=== PATIENT | male | born 1960 | race Caucasian/White ===

== ENCOUNTER → 2024-02-04 | Outpatient (CLI) | payer OTHER ==
--- NOTE | 2024-02-04 13:23 | MR ---
EXAMINATION TYPE: MR Prostate wo/w con DATE OF EXAM: 02/04/2024 8:29 AM COMPARISON: None. CLINICAL INDICATION:Male, 63 years old with history of R97.20 ELEVATED PROSTATE SPECIFIC ANTIGEN [PSA ]; Elevated PSA TECHNIQUE: Multi-planar, multi-sequence imaging of the pelvis is performed prior to and following the uncomplicated administration of bolus intravenous gadolinium. CONTRAST: 10 Gadavist Interpretive Criteria: PI-RADS v2.1 SERUM PSA: 23.3 on January 2024 SURGICAL PATHOLOGY: No data available. FINDINGS: Prostatic dimensions: 6.4 x 6.5 x 4.8 cm. Ellipsoid Volume:104.55 (PSA density=0.22 ng/mL/mL) CENTRAL GLAND (Central and Transition Zones/CZ+TZ): * Medial anterior central gland just left of midline 8 x 8 x 8 mm low T2 high DWI low ADC signal les ion (PI-RADS 4) * Anterior lateral right of midline with low T2 high or heterogenous DWI/ADC signal measuring 13 x 1 0 mm (PI-RADS 4) Multiple bilateral, heterogenous appearing hypertrophic stromal nodules, without suspicious lesion. M edian lobe hypertrophy with protrusion into the base of the bladder. (PI-RADS 2) PERIPHERAL ZONE (PZ): Bilateral linear, indistinct wedgelike areas of low ADC, and low T2 signal, No evidence of masslike a bnormality, or localized perfusional hypervascularity, to further suggest a focus of clinically signi ficant prostate cancer. (PI-RADS 2) SEMINAL VESICLES (SV): Symmetric and unremarkable. PERIPROSTATIC TISSUES: Unremarkable. LYMPH NODES: No enlarged pelvic lymph node. REMAINING PELVIS: Bladder wall is within normal limits given distention. No abnormal free or organized intrapelvic fluid collection. No pathologic bowel dilation or mural thickening. Right fat containing inguinal hernia Left hydrocele. OSSEOUS STRUCTURES: No suspicious osseous abnormality. IMPRESSION: 1. There are 2 suspicious areas in the central gland mid gland, the most suspicious of which is on th e left both of these lesions are PI-RADS 4 measuring up to 8 mm on the left and 13 mm on the right. 2. Substantial BPH, estimated gland volume 104.55 mL. 3. No suspicious osseous lesion. No lymphadenopathy. No evidence of prostate adenocarcinoma involving the periprostatic tissues.
== END | disposition home or self-care (01) ==
LOC: RADMRIMAIN 06:33
PROVIDERS: ATTEND Urology
DX: N40.0 Benign prostatic hyperplasia without lower urinary tract symptoms (principal); R97.20 Elevated prostate specific antigen [PSA]
CPT/HCPCS: 72197; A9585